=== PATIENT | female | born 1965 | race Hispanic/Latino ===

== ENCOUNTER 2024-06-17 17:10 | Emergency (ER) | payer OTHER ==
[~2024-06-17] VITALS: Ht 160 cm; Wt 74.8 kg
[2024-06-17 17:30] VITALS: TEMP 98.4
[2024-06-17] MEDS: HYDROCODONE/APAP 5MG-325MG TAB PO ONE (17:50)
[2024-06-17] MEDS: ONDANSETRON HCL 4 MG ORAL DISINTEGRATING TAB PO ONE (17:50)
[2024-06-17] MEDS ORDERED: HYDROCODON-ACE1 EA11 PO (18:07)
[2024-06-17] MEDS: Morphine 4mg INJECTION 4 MG/ML INJ IV STA (18:28)
[2024-06-17 19:03] VITALS: PULSE 84; RESP 20
[2024-06-17 19:10] VITALS: BP 151/91; PULSE 84; RESP 20; O2SAT 94
[2024-06-17] MEDS ORDERED: HYDROCODON-ACE1 EAC9 PO (19:32)
[2024-06-17] MEDS: ONDANSETRON HCL INJ 2MG/ML 2ML 2 MG/ML VIAL IV STA (19:33)
== END 2024-06-17 19:10 | disposition home or self-care (01) ==
LOC: EDBD 17:10 → ER 17:15
DX: S82.192A Other fracture of upper end of left tibia, initial encounter for closed fracture (principal); S82.492A Other fracture of shaft of left fibula, initial encounter for closed fracture; W17.89XA Other fall from one level to another, initial encounter; Y92.89 Other specified places as the place of occurrence of the external cause
CPT/HCPCS: 29505; 73590; 99284; J2270; Q0162; J2405